=== PATIENT | male | born 1950 | race Caucasian/White ===

== ENCOUNTER 2017-02-01 08:38 | Outpatient (CLI) | payer MEDICARE, BC ==
[2017-02-01 11:00] LABS: BUN - BLOOD UREA NITROGEN 19 mg/dL (6-20); CALCIUM 9.4 mg/dL (8.5-10.3); CARBON DIOXIDE - CO2 29 mmol/L (21-32); CHLORIDE 103 mmol/L (101-111); CHOL/HDL RATIO 5.6 (<5.0); CHOLESTEROL 209 mg/dL; CREATININE 0.8 mg/dL (0.6-1.2); GFR - MDRD 96 (>89); GLUCOSE 106 mg/dL (70-100); HDL CHOLESTEROL 37 mg/dL; LDL/HDL RATIO 3.6 (<3.6); SODIUM 139 mmol/L (135-145); TRIGLYCERIDES 195 mg/dL; VLDL CHOLESTEROL 39 mg/dL
== END 2017-02-01 08:39 | disposition home or self-care (01) ==
LOC: LAB.F 08:38
PROVIDERS: ATTEND Internal Medicine
DX: I10 Essential (primary) hypertension (principal); E78.00 Pure hypercholesterolemia, unspecified
CPT/HCPCS: 36415; 80048; 80061

== ENCOUNTER 2019-02-16 14:17 | Emergency (ER) | payer MEDICARE, BC ==
[2019-02-16] MEDS ORDERED: IOVERSOL 320 100 ML VIAL IVP ONE ×2 (15:58→16:55)
[2019-02-16 16:20] LABS: CALCIUM 9.1 mg/dL (8.5-10.3); CREATININE 0.9 mg/dL (0.6-1.2)
--- NOTE | 2019-02-16 17:42 | CT Report ---
Reason: Swelling left neck Procedure Date: 02/16/2019 Accession Number: [id number] / [id number] Procedure: CT - SOFT TISSUE NECK W CPT Code: FULL RESULT: EXAM: CT SOFT TISSUE NECK WITHCONTRAST. EXAM DATE: 02/16/2019 04:52 PM. HISTORY: 68-year-old presenting with left neck swelling. Evaluate for neck pathology. COMPARISONS: None. TECHNIQUE: Routine soft tissue neck CT protocol. Reconstructions: Coronal and sagittal. IV contrast: 100 cc Optiray 320. In accordance with CT protocol optimization, one or more of the following dose reduction techniques were utilized for this exam: automated exposure control, adjustment of mA and/or KV based on patient size, or use of iterative reconstructive technique. FINDINGS: Dental amalgam metallic streak artifact technically limits evaluation of the oral cavity, oropharynx, and surrounding soft tissues. Visualized Intracranial Contents: Unremarkable. Orbits: Symmetric and unremarkable. Sinuses: Visualized paranasal sinuses and mastoid air cells are clear. Oral cavity: The visualized floor of mouth appears normal. There is a hyperdense mass lesion seen within the right base of tongue with extension into the posterior one-third of the tongue and extension across midline to involve the left base of tongue. The mass lesion appears to project into the right and left vallecula, greater on the left. Overall mass lesion measures approximately 42 x 49 x 15 mm (CC x TR x AP). Pharynx: Pharyngeal mucosa is unremarkable. The infratemporal fossa, parapharyngeal spaces, and retropharyngeal space are unremarkable. The airway is patent. Larynx: Larynx and supraglottic airway are patent without mass lesion. Vocal cords are symmetric. The visualized trachea is unremarkable. Parotid and Submandibular Glands: Symmetric and unremarkable. Lymph Nodes: There is a pathologically enlarged left level 1B lymph nodes seen measuring 48 x 36 x 31 mm (CC x TR x AP). There appear to be central areas of hypoattenuation that may represent necrosis. There is mass effect with anterior displacement of the left submandibular gland. There are additional subcentimeter cervical lymph nodes seen throughout the neck that do not meet CT size criteria for pathology. Soft tissues: Soft tissues are unremarkable. No mass lesion or abnormal enhancement. Vascular Structures: There is atherosclerotic plaque involving the carotid bifurcations with no high-grade stenosis seen. Thyroid Gland: Normal. Lung: Mild bullous emphysematous changes of visualized lung apices, greater on the right. Bones: No evidence of acute fracture or malalignment. There are mild degenerative changes. Other: None. IMPRESSION: 1. There is a hyperdense mass lesion seen within the left base of tongue that crosses midline to involve the right base of tongue and appears to invade into the posterior one-third of the tongue. Overall mass lesion is difficult to measure accurately but approximately measures 42 x 49 x 15 mm (CC x TR x AP). Finding is suspicious for potential squamous cell carcinoma though other malignancy is not excluded. Correlation with direct visualization and PET/CT is suggested. 2. Pathologically enlarged left level 1B lymph node measuring 48 x 36 x 31 mm (CC x TR x AP). Finding suspicious for metastatic lymph node with areas of central hypoattenuation concerning for necrosis. Correlation with PET/CT is suggested. RADIA
--- NOTE | 2019-02-16 17:48 | ED Physician Documentation ---
History of Present Illness - Stated complaint Stated Complaint: NECK LUMP - Chief complaint Chief Complaint: Heent - History obtained from History obtained from: Patient - History of Present Illness Timing: How many days ago (a few) - Additonal information Additional information: The patient is a 68-year-old male who reports having a lump on the left side of his neck. He first noticed it a few days ago. He denies sore throat but states he can feel the lump when swallowing. He denies fever, cough, or shortness of breath. He denies history of similar symptoms in the past. He denies any recent illness other than seasonal allergies. He went to his dentist yesterday for teeth cleaning, thinking that possibly an infected tooth was causing the swelling. However he denies any toothache. Review of Systems Constitutional: denies: Fever Ears: denies: Ear pain Nose: denies: Congestion Throat: reports: Other (Lump on left side of throat.). denies: Dental pain / toothache, Sore throat Cardiac: denies: Chest pain / pressure Respiratory: denies: Dyspnea, Cough GI: denies: Abdominal Pain, Nausea, Vomiting : denies: Dysuria Skin: denies: Rash Musculoskeletal: denies: Neck pain, Extremity pain Neurologic: denies: Focal weakness, Numbness, Headache PD PAST MEDICAL HISTORY - Past Medical History Cardiovascular: Hypertension Respiratory: None Neuro: None Endocrine/Autoimmune: None - Present Medications Home Medications: Ambulatory Orders Medication Instructions Recorded Confirmed Lisinopril 10 mg ORAL DAILY 02/16/19 02/16/19 - Allergies Allergies/Adverse Reactions: Allergies Allergy/AdvReac Type Severity Reaction Status Date / Time No Known Drug Allergies Allergy Verified 02/16/19 14:31 - Social History Does the pt smoke?: No Smoking Status: Former smoker (Quit smoking cigarettes 30 years ago.) PD ED PE NORMAL - Vitals Vital signs reviewed: Yes (normal) - General General: Alert and oriented X 3, No acute distress, Well developed/nourished - HEENT HEENT: Atraumatic, EOMI, Ears normal, Pharynx benign - Neck Neck: Supple, no meningeal sign, No JVD, Other (A firm mass is palpated in the left submandibular region, suggestive of an enlarge lymph node. It is not particularly tender to palpation.) - Cardiac Cardiac: RRR, No murmur - Respiratory Respiratory: No respiratory distress, Clear bilaterally - Abdomen Abdomen: Soft, Non tender - Derm Derm: No rash - Extremities Extremities: No edema, No calf tenderness / cord - Neuro Neuro: Alert and oriented X 3, No motor deficit, No sensory deficit, Normal speech Results - Vitals Vitals: Vital Signs - 24 hr 02/16/19 02/16/19 02/16/19 14:27 18:05 18:19 Temperature 36.3 C L 36.4 C L 36.4 C L Heart Rate 70 64 74 Respiratory 16 16 12 Rate Blood Pressure 134/74 H 155/92 H 124/80 O2 Saturation 97 98 96 Oxygen O2 Source Room air - Labs Labs: Laboratory Tests 02/16/19 02/16/19 15:58 15:58 WBC 6.4 RBC 4.62 L Hgb 14.1 Hct 42.6 MCV 92.0 MCH 30.4 MCHC 33.1 RDW 12.7 Plt Count 192 MPV 8.5 Neut # (Auto) 4.4 Lymph # (Auto) 1.2 L Owsley # (Auto) 0.5 Eos # (Auto) 0.3 Baso # (Auto) 0.0 Absolute Nucleated RBC 0.00 Nucleated RBC % 0.0 Sodium 140 Potassium 3.7 Chloride 102 Carbon Dioxide 29 Anion Gap 9.0 BUN 26 H Creatinine 0.9 Estimated GFR (MDRD) 83 L Glucose 99 Calcium 9.1 - Rads (name of study) CT soft tissue neck Radiology: Prelim report reviewed, EMP read contemporaneously, See rad report (There is a hyperdense mass lesion seen within the left base of the tongue that crosses midline to involve the right base of tongue and appears to invade into the posterior one third of the tongue. Overall mass lesion is difficult to measure accurately but approximately measures 42 x 49 x 15 mm. Finding is suspicious for potential squamous cell carcinoma though other malignancy is not excluded. Correlation with direct visualization and PET/CT is suggested. Pathologically enlarged left level 1B lymph node measuring 48 x 36 x 31 mm. Findings suspicious for metastatic lymph node with areas of central hypoattenuation concerning for necrosis. Correlation with PET/CT is suggested.) PD MEDICAL DECISION MAKING - ED course Complexity details: reviewed results, re-evaluated patient, considered differential, d/w patient, d/w family, d/w peoplesoft financials consultant ED course: The patient's presentation is significant for mass in the left submandibular region at the base of the tongue, suggestive of carcinoma. CT scan does not reveal evidence of abscess. The radiologist recommends PET/CT for further quintin luation. This is not a study that is able to be performed at [facility]. I discussed the patient's presentation with the on-call service for Dr. Fernandez, personnel placement specialist director of teacher education at [facility]. He agrees to see the patient urgently in outpatient follow-up. I discussed the CT results with the patient and his , advising them of the importance of urgent outpatient E NT follow-up. A DVD copy of the CT scan was made for the patient to take with him to the follow-up appointment. Departure - Departure Disposition: 01 Home, Self Care Clinical Impression: Mass in neck Condition: Stable Follow-Up: Jacobo Fernandez MD [Physician No Access] - Comments: Follow-up with personnel placement specialist in [place]. Call tomorrow to schedule soonest available appointment. Take the DVD copy of your CT scan with you to the appointment. Return to the emergency department if increasing difficulty swallowing, or otherwise worsening symptoms. Discharge Date/Time: 02/16/19 18:30
[2019-02-16 18:01] LABS: BASOPHILS % (AUTO) 0.6 %; EOSINOPHILS # (AUTO) 0.3 10^3/uL (0.0-0.7); EOSINOPHILS % (AUTO) 4.4 %; HGB - HEMOGLOBIN 14.1 g/dL (14.0-18.0); LYMPHOCYTES # (AUTO) 1.2 10^3/uL (1.5-3.5); LYMPHOCYTES % (AUTO) 19.5 %; MEAN CORPUSCULAR HEMOGLOBIN 30.4 pg (27.0-31.0); MEAN CORPUSCULAR HGB CONC 33.1 g/dL (32.0-36.0); MEAN PLATELET VOLUME 8.5 fL (7.4-11.4); MONOCYTES # (AUTO) 0.5 10^3/uL (0.0-1.0); MONOCYTES % (AUTO) 7.1 %; NEUTROPHILS # (AUTO) 4.4 10^3/uL (1.5-6.6); NEUTROPHILS % (AUTO) 68.4 %; PLT - PLATELET COUNT 192 10^3/uL (130-450); RED BLOOD COUNT 4.62 10^6/uL (4.70-6.10); RED CELL DISTRIBUTION WIDTH 12.7 % (12.0-15.0); WHITE BLOOD COUNT 6.4 x10^3/uL (4.8-10.8)
[2019-02-16 18:19] VITALS: BP 124/80
== END 2019-02-16 18:30 | disposition home or self-care (01) ==
LOC: ED 14:17
DX: R22.1 Localized swelling, mass and lump, neck (principal); I10 Essential (primary) hypertension; Z87.891 Personal history of nicotine dependence
CPT/HCPCS: 36415; 70491; 80048; 85025; 99283; Q9967

== ENCOUNTER 2022-09-22 12:21 | Outpatient (CLI) | payer MEDICARE, BC ==
--- NOTE | 2022-09-22 11:46 | XRAY Report ---
PROCEDURE: Chest 2 View X-Ray INDICATIONS: CHEST CONGESTION TECHNIQUE: 2 views of the chest were acquired. COMPARISON: None FINDINGS: Mild peribronchial cuffing and lower lung opacities. No pleural effusions. No dense consoli dation. Normal heart size. Possible old rib deformities. Degenerative changes. IMPRESSION: Mild peribronchial and lower lung opacities could represent atelectasis and bronchitis/early airspace disease. Consider future imaging surveillance to assess for resolution. Reviewed by: Bobby Peralta MD on 09/22/2022 11:45 AM [facility] Approved by: Bobby Peralta MD on 09/22/2022 11:45 AM PST Station ID: [id number]
== END 2022-09-22 12:22 | disposition home or self-care (01) ==
LOC: DI.S 12:21
PROVIDERS: ATTEND Physician Assistant Medical
DX: R09.89 Other specified symptoms and signs involving the circulatory and respiratory systems (principal); R05.9 Cough, unspecified

== ENCOUNTER 2024-06-01 07:00 | Outpatient (CLI) | payer MEDICARE, BC ==
--- NOTE | 2024-06-01 15:45 | XRAY Report ---
PROCEDURE: Chest 2V INDICATIONS: RIGHT LOWER LOBE PNEUMONIA TECHNIQUE: 2 views of the chest were acquired. COMPARISON: 09/22/2022 FINDINGS: Surgical changes and devices: None. Lungs and pleura: Lungs are mildly hyperinflated bilaterally. Patchy opacity within the left lung ap ex seen in association with a left suprahilar reticular density with similar appearance seen previous ly likely related to pleural parenchymal scarring. Interstitial thickening within the mid to right lower lung possibly scarring. No focal airspace opaci ty or consolidation. No pneumothorax or pleural effusion. Mediastinum: Mediastinal contours appear normal. Heart size is normal. Bones and chest wall: No suspicious bony lesions. Overlying soft tissues appear unremarkable. Ext ensive degenerative changes throughout the thoracic spine. Old healed posterior right fourth through sixth rib fractures. IMPRESSION: 1. Interstitial thickening within the right mid to lower lung possibly related to fibrotic changes wi th possibility of an underlying interstitial pneumonia not entirely excluded. If clinically indicated , correlation with chest CT is recommended. 2. COPD changes with unchanged left apical pleural-parenchymal scarring. Reviewed by: Ashish Johnson MD on 06/01/2024 3:43 PM PDT Approved by: Ashish Johnson MD on 06/01/2024 3:43 PM PDT Station ID: [id number]
== END 2024-06-01 23:59 | disposition home or self-care (01) ==
LOC: DI.S 07:00
PROVIDERS: ATTEND Emergency Medicine
DX: J18.9 Pneumonia, unspecified organism (principal); J44.0 Chronic obstructive pulmonary disease with (acute) lower respiratory infection